=== PATIENT | female | born 2000 | race Caucasian/White ===

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

== ENCOUNTER → 2022-08-30 | Outpatient (CLI) | payer OTHER ==
--- NOTE | 2022-08-31 10:28 | US ---
EXAMINATION TYPE: Ultrasound OB <= 14 week fetus DATE OF EXAM: 08/30/2022 4:08 PM COMPARISON: NONE CLINICAL INDICATION: Female, 22 years old with history of Z36.89 ENCOUNTER FOR OTHER SPECIFIED ANTENA CARL SCR; confirm dates EXAM PERFORMED: Transabdominal (TA) EXAM MEASUREMENTS: GESTATIONAL AGE / DATING Physician Established: Not yet established Dates by LMP: (12 weeks/0 days) EDC: 03/14/2023 Dates by First Scan: No previous this is first scan Dates by Current Scan for: (11 weeks/5 days) EDC: 03/16/2023 MATERNAL ANATOMY Uterus: 9.8 x 8.2 x 8.7 cm Right Ovary: 3.1 x 1.7 x 1.7 cm Left Ovary: 4.2 x 1.7 x 2.2 cm Post CDS / Adnexa: wnl Presence of free fluid: wnl Presence of corpus luteal cyst: no Presence of subchorionic bleed: no GESTATION / SURVEY CRL: 4.9cm (11 weeks/5 days) Yolk Sac (normal less than 6mm): 5 mm Heart Rate: 156 bpm Rhythm: Normal IUP: Viable IUP Beta HcG (if available): Not available at this time IMPRESSION: 1. Single live intrauterine with estimated gestational age of 12 weeks 0 days by LMP. Curre nt ultrasound biometry is concordant at 11 weeks 5 days. 2. Prominent size to the yolk sac at 5 mm, upper limits of normal. 3. Complete survey recommended at 18-20 weeks.
== END | disposition home or self-care (01) ==
LOC: RADUSWWP 15:44
PROVIDERS: ATTEND Obstetrics & Gynecology
DX: Z36.89 Encounter for other specified antenatal screening (principal); Z3A.12 12 weeks gestation of pregnancy
CPT/HCPCS: 76801

== ENCOUNTER 2022-12-19 22:50 | Outpatient (CLI) | payer OTHER ==
[2022-12-19 23:56] VITALS: BP 120/66; PULSE 108; RESP 18; TEMP 98.2
--- NOTE | 2022-12-20 06:44 | P.MSEPDOC ---
Presenting Problems - Arrival Data Date of Arrival on Unit: 12/19/22 Time of Arrival on Unit: 23:00 Mode of Transport: Ambulatory - Complaint OB-Reason for Admission/Chief Complaint: Decreased Movement, Pain Comment: pt states that she had vag/abd pain with movement from baby then states that she had felt baby move in the last hour Medical History - Information : 1 Para: 0 Term: 0 : 0 Abortions: Spontaneous or Elective: 0 Number of Living Children: 0 - Gestational Age Gestational Age by SATYA (wks/days): 27 Weeks and 6 Days Review of Systems - Review of Systems Constitutional: No problems Breast: No problems ENT: No problems Cardiovascular: No problems Respiratory: No problems Gastrointestinal: No problems Genitourinary: No problems Musculoskeletal: No problems Neurological: No problems Skin: No problems Vital Signs - Temperature Temperature: 98.2 F Temperature Source: Oral - Pulse Pulse Oximetery Pulse Rate: 108 Pulse Assessment Method: Pulse Oximetry - Respirations Respiratory Rate: 18 Oxygen Delivery Method: Room Air O2 Sat by Pulse Oximetry: 99 - Blood Pressure Right Arm Blood Pressure: 120/66 Blood Pressure Mean: 84 Blood Pressure Source: Automatic Cuff Medical Screen Scoring - Uterine Contractions Resting: Soft to palpation - Assessment - Baby A Baseline FHR: 130 Heart Rate - NICHD Category: Category I (Normal) NST: Reactive Physician Notification - Physician Notified Physician Notified Date: 12/19/22 Physician Notified Time: 23:34 Physician: Felipe Ortez New Order Received: Yes (d/c home) Maternal Triage Index - Maternal Triage Index Presenting for scheduled procedure w/no complaint: No - Stat/Priority 1 Stat Priority 1: No - Urgent/Priority 2 Urgent Priority 2: No - Prompt/Priority 3 Prompt Priority 3: No - Non-Urgent/Priority 4 Non-Urgent Priority 4: Yes Criteria Met for Priority 4: pt states abd/vag pain after movement from baby and then states no movement for 1 hour after movement Disposition - Disposition OB Disposition: Discharge to home Discharge Date: 12/19/22 Discharge Time: 23:45 I agree with the RN Medical Screening Exam: Yes Case reviewed; plan agreed upon as documented in EMR&OBIX.: Yes Diagnosis: RELATED CONDITIONS, UNSPECIFIED, THIRD TRIMESTER
== END 2022-12-19 23:45 | disposition home or self-care (01) ==
LOC: FBPOP 22:50
PROVIDERS: ATTEND Obstetrics & Gynecology
DX: O36.8131 Decreased fetal movements, third trimester, fetus 1 (principal); R10.9 Unspecified abdominal pain; Z3A.27 27 weeks gestation of pregnancy
CPT/HCPCS: 99213

== ENCOUNTER 2023-02-14 12:22 | Outpatient (CLI) | payer OTHER ==
[2023-02-14 13:30] VITALS: BP 132/78; PULSE 93; RESP 16; TEMP 97.8
== END 2023-02-14 13:12 | disposition home or self-care (01) ==
LOC: FBPOP 12:22
PROVIDERS: ATTEND Obstetrics & Gynecology
DX: Z53.9 Procedure and treatment not carried out, unspecified reason (principal)
CPT/HCPCS: 59025; G0463; 99213

== ENCOUNTER 2023-03-08 06:12 | Inpatient (IN) | payer OTHER ==
--- NOTE | 2023-03-07 08:58 | P.HPOB ---
History of Present Illness H&P Date: 03/07/23 Chief Complaint: Induction of labor This is a 23 y.o. female, 1, para 0, with an estimated date of confinement of 03/14/2023, estimated gestational age of 39-1/7 weeks, who presents for induction of labor. She complains of irregular contractions and pressure. She had a low lying placenta earlier in the that did resolve by 32 weeks. She was also using THC earlier in the , but did stop. Chlamydia was positive early in and was treated with test of cure negative. labs: Hemoglobin-13.9 Blood type-O+ Antibody screen-neg Rubella-immune Toxoplasma-neg RPR-NR HIV-NR Hepatitis C-neg Random glucose-92 Hepatitis B surface antigen-neg Antibody screen-neg [id number] 1 hr. 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 Unemployed. Review of Systems Constitutional: Denies chills, Denies fever Eyes: denies blurred vision, denies pain Ears, nose, mouth and throat: Denies headache, Denies sore throat Cardiovascular: Denies chest pain, Denies shortness of breath Respiratory: Denies cough Gastrointestinal: Reports abdominal pain (irregular contractions), Reports nausea Genitourinary: Reports pelvic pain, Reports Musculoskeletal: Reports low back pain Integumentary: Denies pruritus, Denies rash Neurological: Denies numbness, Denies weakness Psychiatric: Denies anxiety, Denies depression Past Medical History Past Medical History: No Reported History History of Any Multi-Drug Resistant Organisms: None Reported Past Surgical History: No Surgical Hx Reported Past Psychological History: No Psychological Hx Reported Smoking Status: Vaper (quit with ) Past Alcohol Use History: None Reported Past Drug Use History: Marijuana (Quit by about 20 weeks) - Past Family History Mother Family Medical History: Hypertension Father Family Medical History: Hypertension Medications and Allergies Home Medications Medication Instructions Recorded Confirmed Type Ondansetron [Zofran] 4 mg PO Q12HR PRN 12/19/22 02/14/23 History Allergies Allergy/AdvReac Type Severity Reaction Status Date / Time No Known Allergies Allergy Verified 02/14/23 12:38 Exam Osteopathic Statement: *. No significant issues noted on an osteopathic structural exam other than those noted in the History and Physical/Consult. HEENT: within normal limits Heart: regular rate and rhythm Lungs: clear to auscultation bilaterally Abdomen: , non-tender heart tones: 140's by doppler Cervix 3 cm/70%/-2 Extremities: neg. Chas's Assessment and Plan (1) 39 weeks gestation of Status: Acute Code(s): Z3A.39 - 39 WEEKS GESTATION OF SNOMED Code(s): 32682466 Plan: Proceed with oxytocin induction of labor. Expectant management. Epidural anesthesia if desired.
[2023-03-08] MEDS ORDERED: TRANEXAMIC 1,000 MG/100ML-NACL 1,000 MG in EMPTY BAG 1 BAG IV PRN (06:25)
[2023-03-08] MEDS ORDERED: LIDOCAINE 1% (10MG/ML) FOR IV START INTRADERMA PRN (06:25)
[2023-03-08] MEDS ORDERED: TERBUTALINE 1 MG/ML VIAL SQ PRN (06:25)
[2023-03-08] MEDS ORDERED: CARBOPROST TROMETHAMINE 250 MCG/ML 1 ML AMP IM PRN (06:25)
[2023-03-08] MEDS ORDERED: OXYTOCIN 10 UNIT/ML 1 ML VIAL IM PRN (06:25)
[2023-03-08] MEDS ORDERED: METHYLERGONOVINE 0.2 MG/ML 1 ML AMP IM PRN (06:25)
[2023-03-08] MEDS ORDERED: miSOPROStoL 200 MCG TAB PO PRN (06:25)
[2023-03-08] MEDS ORDERED: LIDOCAINE 0.5% (PF) 5 MG/ML (50 ML SDV) SQ PRN (06:25)
[2023-03-08] MEDS ORDERED: OXYTOCIN 30 UNITS/500 ML NS 30 UNIT in SALINE 1 500ML.BAG IV SCH (06:25)
[2023-03-08 06:41] LABS: Basophils # (A) 0.1 k/uL (0-0.2); Basophils % (A) 0 %; Eosinophils # (A) 0.2 k/uL (0-0.7); Eosinophils % (A) 1 %; HCT 32.5 % (34.0-46.0); HGB 10.8 gm/dL (11.4-16.0); Hypochromasia Slight; Lymphocytes # (A) 2.9 k/uL (1.0-4.8); Lymphocytes % (A) 18 %; MCH 27.2 pg (25.0-35.0); MCHC 33.1 g/dL (31.0-37.0); MCV 82.4 fL (80.0-100.0); Mean Platelet Volume 7.9; Monocytes # (A) 0.7 k/uL (0-1.0); Monocytes % (A) 4 %; Neutrophils # (A) 11.9 k/uL (1.3-7.7); Neutrophils % (A) 75 %; Platelet Count 366 k/uL (150-450); Poikilocytosis Slight; RBC 3.95 m/uL (3.80-5.40); RDW 13.7 % (11.5-15.5); WBC 15.9 k/uL (3.8-10.6)
[2023-03-08] MEDS: LACTATED RINGERS 1,000 ML IV SCH ×2 (06:43→13:21)
[2023-03-08 09:11] LABS: Amphetamine Screen,Urine Not Detected (NotDetected); Barbiturate Screen,Urine Not Detected (NotDetected); Benzodiazepines Screen,Urine Not Detected (NotDetected); Cocaine Screen,Urine Not Detected (NotDetected); Methadone Screen, Urine Not Detected (NotDetected); Opiate Screen,Urine Not Detected (NotDetected); Oxycodone Screen, Urine Not Detected (NotDetected); Phencyclidine Screen,Urine Not Detected (NotDetected); Tricyclic Antidepressant,Urine Not Detected (NotDetected); Urn Cannabinoid Scrn Not Detected (NotDetected)
[2023-03-08] MEDS ORDERED: diphenhydrAMINE 25 MG CAP PO PRN (17:25)
[2023-03-08] MEDS ORDERED: SENNOSIDES-DOCUSATE SODIUM 1 EACH TAB PO SCH (17:25)
[2023-03-08] MEDS ORDERED: LANOLIN CREAM 5 GM TUBE TOPICAL PRN (17:25)
[2023-03-08] MEDS ORDERED: ZOLPIDEM 5 MG TAB PO PRN (17:25)
[2023-03-08] MEDS ORDERED: diphenhydrAMINE 50 MG/ML 1 ML VIAL IVP PRN ×2 (17:25)
[2023-03-08] MEDS ORDERED: HYDROCORTISONE 2.5% RECTAL CREAM 30 GM TUBE RECTAL PRN (17:25)
[2023-03-08] MEDS ORDERED: diphenhydrAMINE 50 MG CAP PO PRN (17:25)
[2023-03-08] MEDS ORDERED: BENZOCAINE/MENTHOL SPRAY 1 GM/SPRAY AEROSOL TOPICAL PRN (17:25)
[2023-03-08] MEDS ORDERED: SIMETHICONE 80 MG CHEWABLE PO PRN (17:25)
[2023-03-08] MEDS: IBUPROFEN 600 MG TAB PO PRN (17:35)
[2023-03-08] MEDS: SENNOSIDES-DOCUSATE SODIUM 1 EACH TAB PO SCH (17:56)
--- NOTE | 2023-03-08 18:27 | P.PROBDLV ---
Vaginal Delivery Note - . Vaginal Delivery Note: She progressed to complete dilation after oxytocin induction of labor and artificial rupture membranes with clear fluid noted. She did receive nitrous oxide for pain control. Once reaching complete, she began pushing. She pushed for about 2-1/2 hours and slowly brought 's head to a crown. With one further push, the 's head delivered across the perineum in a right occiput anterior lie. With one further attempt to push the anterior shoulder out, it wa s apparent that there was a shoulder dystocia. Patient was instructed to stop pushing and I placed a gloved hand anteriorly along the front of the anterior left shoulder and was able to rotate slight counterclockwise. I advised her to try to push one further time and this did not release the shoulder. I was then able to place a gloved hand posteriorly and was able to hook my finger around the front of the posterior or right shoulder and slowly rotate in a clockwise fashion as the mother gave another push and was able to deliver the posterior shoulder. As soon as the posterior shoulder delivered I was able to reduce nuchal cord times one around the baby's head and was able to gently pull the baby with maternal pushing efforts completely out and onto mother's abdomen. Baby was noted to be floppy and cord was immediately clamped and cut and infant was taken to warmer for evaluation by nursing staff and pediatrics. Baby was then later taken to the nursery for further evaluation by pediatrics. A viable male infant is noted with scores of 2 at 1 minute 2 at 5 minutes and 5 at 10 minutes. weight was 8 lbs. 2 oz. The entire shoulder dystocia lasted approximately 2 minutes. Placenta delivered shortly thereafter, intact, with a three-vessel cord. Uterus then contracted fairly well after oxytocin was given and uterine massage was carried out. Inspection of the perineum revealed a small first-degree perineal laceration. This area was anesthetized with 1% lidocaine and then sutured with 3-0 Vicryl suture in a running locked fashion. A gloved hand was also placed within the uterine cavity and a large clot was removed. Uterus did firm and no active bleeding was noted. Estimated blood loss is approximately 150 mL's. Both mother and infant are in stable condition at this time. Infant is in level I nursery. Patient in her family were COUNSELED regarding the shoulder dystocia. She is advised that she should have a delivery with any future deliveries due to the shoulder dystocia. She is advised that outcomes could be worse in the future and that a risk factor for shoulder dystocia is a previous shoulder dystocia. Patient and her family expressed understanding.
--- NOTE | 2023-03-09 07:42 | P.PNOBGVD ---
Subjective - Subjective Principal diagnosis: Status post vaginal delivery day 1 Interval history: Patient is doing okay. She is noticing decreased lochia. Pain has been moderate but has been well controlled with her pain medications. Baby is in level I nursery. She does plan to bottle feed. Patient reports: Reports appetite normal, Reports voiding normally, Reports pain well controlled, Reports ambulating normally [place]: other (In level I nursery) Objective - Latest Vital Signs Latest vital signs: Vital Signs Temp Pulse Resp BP Pulse Ox 03/09/23 04:00 98.3 F 95 14 120/73 98 03/09/23 00:00 98.1 F 94 16 132/77 100 03/08/23 18:50 96 16 126/66 99 03/08/23 18:20 95 16 136/62 98 03/08/23 17:50 92 16 141/68 99 03/08/23 17:35 98.9 F 95 16 139/62 97 03/08/23 17:20 99.5 F 98 16 137/62 99 03/08/23 17:05 103 H 16 153/68 100 03/08/23 16:50 99.0 F 102 H 16 151/99 98 Intake and Output 03/08/23 03/09/23 03/09/23 22:59 06:59 14:59 Intake Total 186.733 Output Total 310 Balance -123.267 Intake: Intake, IV Titration 186.733 Amount Oxytocin 30 Units/500 ml 186.733 Ns 30 unit In Saline 1 500ml.bag @ Per Protocol IV .Q0M [facility] Rx#:[id number] Output: Estimated Blood Loss 100 Output, Quantitative 210 Blood Loss Other: # Voids 1 1 - Exam Extremities: Present: normal. Absent: tenderness, edema Abdomen: Present: normal appearance, soft. Absent: distention, tenderness Uterus: Present: normal, firm. Absent: tenderness Assessment and Plan Assessment: Status post vaginal delivery day #1 (1) 39 weeks gestation of Current Visit: No Status: Acute Code(s): Z3A.39 - 39 WEEKS GESTATION OF SNOMED Code(s): 47844972 Plan: Will continue with care today. Anticipate discharge home tomorrow.
[2023-03-09] MEDS: SENNOSIDES-DOCUSATE SODIUM 1 EACH TAB PO SCH ×2 (08:05→23:25)
[2023-03-09] MEDS: IBUPROFEN 600 MG TAB PO PRN ×3 (08:06→18:15)
[2023-03-09 08:21] LABS: Basophils % (A) 0 %; Eosinophils # (A) 0.1 k/uL (0-0.7); Eosinophils % (A) 0 %; HCT 26.3 % (34.0-46.0); Hypochromasia Slight; Lymphocytes # (A) 4.4 k/uL (1.0-4.8); Lymphocytes % (A) 17 %; MCH 27.2 pg (25.0-35.0); MCV 82.5 fL (80.0-100.0); Monocytes # (A) 1.1 k/uL (0-1.0); Monocytes % (A) 5 %; Neutrophils # (A) 19.3 k/uL (1.3-7.7); Neutrophils % (A) 77 %; Platelet Count 288 k/uL (150-450); RBC 3.19 m/uL (3.80-5.40); RDW 13.9 % (11.5-15.5); WBC 25.3 k/uL (3.8-10.6)
[2023-03-09 08:28] LABS: HGB 8.7 gm/dL (11.4-16.0)
[2023-03-09] MEDS: ACETAMINOPHEN TAB 325 MG TAB PO PRN ×2 (10:48→16:21)
[2023-03-10] MEDS: IBUPROFEN 600 MG TAB PO PRN ×2 (00:26→17:23)
--- NOTE | 2023-03-10 07:36 | P.PNOBGVD ---
Subjective - Subjective Patient reports: Reports appetite normal, Reports voiding normally, Reports pain well controlled, Reports ambulating normally [place]: doing well, in NICU Objective - Latest Vital Signs Latest vital signs: Vital Signs Temp Pulse Pulse Resp BP Pulse Ox 03/10/23 00:00 97.5 F L 87 16 136/90 03/09/23 16:30 97.6 F 87 16 127/83 100 03/09/23 08:05 98.2 F 87 16 125/74 Intake and Output 03/09/23 03/10/23 03/10/23 22:59 06:59 14:59 Other: # Voids 2 4 - Exam Lungs: bilateral: normal Chest: Normal S1, Normal S2 Extremities: Present: normal Abdomen: Present: normal appearance, soft Uterus: Present: normal, firm - Labs Labs: Abnormal Lab Results - Last 24 Hours (Table) 03/09/23 Range/Units 07:43 WBC 25.3 H (3.8-10.6) k/uL RBC 3.19 L (3.80-5.40) m/uL Hgb 8.7 L D (11.4-16.0) gm/dL Hct 26.3 L (34.0-46.0) % Neutrophils # 19.3 H (1.3-7.7) k/uL Monocytes # 1.1 H (0-1.0) k/uL Assessment and Plan Assessment: Post day #2. Patient is resting without new complaints. Vital signs are stable she is afebrile. Of note her CBC yesterday showed an elevated white coun t to 25 hemoglobin has dropped to 8.7. For this reason I am going to repeat her CBC today and start some iron therapy. As long as her white blood cell count is coming down she will be stable for discharge home. She is having normal lochia. Her uterus is firm and nontender. Baby is still in special care but improving. (1) Vaginal delivery Current Visit: Yes Status: Acute Code(s): O80 - ENCOUNTER FOR FULL-TERM UNCOMPLICATED DELIVERY SNOMED Code(s): 813112274
--- NOTE | 2023-03-10 07:38 | P.DS ---
Providers Date of admission: 03/08/23 06:12 Expected date of discharge: 03/10/23 Attending physician: Regina Mackenzie Primary care physician: Stated None - Discharge Diagnosis(es) (1) Vaginal delivery Current Visit: Yes Status: Acute Hospital Course: Please see dictated admission history and physical and delivery note per Dr. Mackenzie on this patient's admission. In brief summary this is a 23-year-old 1 para 0 female 39 and one sevenths weeks who is admitted for elective induction of labor. Patient went on to have a vaginal delivery of viable male infant. Of note delivery was complicated by a severe shoulder dystocia. Again please see dictated delivery note per Dr. Mackenzie. patient did well on her did have an elevated white blood cell count on day #1 and this was repeated prior to discharge. Patient's follow up with Dr. Mackenzie in 6 weeks as directed. Procedures: Induction of labor and normal vaginal delivery Patient Condition at Discharge: Good Plan - Discharge Summary New Discharge Prescriptions: New Ibuprofen [Motrin] 600 mg PO Q6HR PRN #60 tab PRN Reason: Mild Pain (Scale 1 To 3) Discharge Medication List Ibuprofen [Motrin] 600 mg PO Q6HR PRN #60 tab 03/09/23 [Rx] Follow up Appointment(s)/Referral(s): Regina Mackenzie DO [Doctor of Osteopathic Medicine] - 04/17/23 11:30 am Activity/Diet/Wound Care/Special Instructions: Instructions 1. Do not begin any exercise program for 3 weeks. 2. Do not resume sexual relations for 3 weeks or longer if uncomfortable. 3. You may take tub baths or showers at any time. 4. You may use tampons if desired after 3 weeks. 5. Keep the area of episiotomy (stitches) clean and dry. 6. If you are not nursing, wear a good fitting, supportive bra during the day and limit fluid intake for at least 1 week to prevent breast engorgement. 7. Call the office, [phone], within the next week to make appointment for your 6 week checkup if it has not already been made. 8. Report any of the following occurrences to the doctor promptly: a. Heavy, excessive bleeding b. Chills, fever c. Burning or frequency of urination d. Pain or redness and breasts if nursing e. Increasing pain or swelling in episiotomy (stitches). In addition to the above instructions, the following additional should be followed: 1. No heavy lifting or straining (exercising) until after 6 week checkup. 2. Keep abdominal incision clean and dry: You may wear a dressing if more comfortable. 3. Make office appointment for 10 days after going home or as instructed by her doctor. Discharge Disposition: HOME SELF-CARE
[2023-03-10] MEDS: SENNOSIDES-DOCUSATE SODIUM 1 EACH TAB PO SCH (08:55)
[2023-03-10] MEDS ORDERED: IRON POLYSACCHARIDES COMPLEX 150 MG CAP PO SCH (09:00)
[2023-03-10 09:47] LABS: Basophils # (A) 0.1 k/uL (0-0.2); Basophils % (A) 0 %; Eosinophils # (A) 0.3 k/uL (0-0.7); Eosinophils % (A) 2 %; HCT 28.3 % (34.0-46.0); Hypochromasia Moderate; Lymphocytes # (A) 2.6 k/uL (1.0-4.8); Lymphocytes % (A) 16 %; MCH 27.2 pg (25.0-35.0); Mean Platelet Volume 7.7; Monocytes # (A) 0.6 k/uL (0-1.0); Monocytes % (A) 4 %; Neutrophils # (A) 12.1 k/uL (1.3-7.7); Neutrophils % (A) 77 %; Platelet Count 308 k/uL (150-450); RBC 3.33 m/uL (3.80-5.40); WBC 15.7 k/uL (3.8-10.6)
--- NOTE | 2023-03-10 11:14 | P.PN ---
Progress Note - Text 03/10/23 649am 23-year-old female status post with spinal Duramorph. Patient seen and evaluated for postop pain control, patient has a VAS of 2 with no complains of nausea vomiting she does have pruritus which is getting better
[2023-03-10] MEDS: ACETAMINOPHEN TAB 325 MG TAB PO PRN (14:18)
[2023-03-10 17:19] VITALS: BP 145/80; PULSE 88; RESP 15; TEMP 97.8
== END 2023-03-10 18:32 | disposition home or self-care (01) | DRG 560 ==
LOC: 4FBP 06:12
PROVIDERS: ADMIT Obstetrics & Gynecology; ATTEND Obstetrics & Gynecology
PROC: 10E0XZZ Delivery of Products of Conception, External Approach (ICD-10-PCS; principal; 2023-03-08)
PROC: 0HQ9XZZ Repair Perineum Skin, External Approach (ICD-10-PCS; 2023-03-08)
PROC: 10907ZC Drainage of Amniotic Fluid, Therapeutic from Products of Conception, Via Natural or Artificial Opening (ICD-10-PCS; 2023-03-08)
PROC: 3E033VJ Introduction of Other Hormone into Peripheral Vein, Percutaneous Approach (ICD-10-PCS; 2023-03-08)
DX: O69.81X0 Labor and delivery complicated by cord around neck, without compression, not applicable or unspecified (principal); O66.0 Obstructed labor due to shoulder dystocia; O44.43 Low lying placenta NOS or without hemorrhage, third trimester; O99.324 Drug use complicating childbirth; F12.90 Cannabis use, unspecified, uncomplicated; O70.0 First degree perineal laceration during delivery; Z37.0 Single live birth; Z3A.39 39 weeks gestation of pregnancy
CPT/HCPCS: 80306; 85025; 86850; 86900; 86901; 88307

== ENCOUNTER → 2024-03-25 | Outpatient (CLI) | payer OTHER ==
--- NOTE | 2024-03-25 17:14 | US ---
EXAMINATION TYPE: US pelvic complete DATE OF EXAM: 03/25/2024 COMPARISON: NONE CLINICAL INDICATION: Female, 24 years old with history of N92.1 EXCESSIVE AND FREQUENT MENSTRUATION; Frequent menses. TECHNIQUE: Transabdominal (TA). Doppler imaging: Not performed. FINDINGS: EXAM MEASUREMENTS: Uterus: 7.9 x 4.0 x 5.5 cm Endometrial Stripe: 1.8 cm Right Ovary: 3.1 x 1.9 x 1.9 cm Left Ovary: 2.8 x 2.4 x 2.9 cm 1. Uterus: Anteverted wnl 2. Endometrium: Upper limits 3. Right Ovary: follicles seen 4. Left Ovary: follicles seen 5. Bilateral Adnexa: wnl 6. Posterior cul-de-sac: wnl Unremarkable anteverted uterus without focal lesion. Endometrium is at the upper limits of normal thi ckness. Both ovaries appear unremarkable with follicles demonstrated. No free fluid. IMPRESSION: Endometrium is at the upper limits of normal thickness otherwise unremarkable exam. [facility], , 03/25/2024 5:12 PM
== END | disposition home or self-care (01) ==
LOC: RADUSWWP 16:11
PROVIDERS: ATTEND Family Medicine
DX: N92.1 Excessive and frequent menstruation with irregular cycle (principal)
CPT/HCPCS: 76856